=== PATIENT | male | born 1980 | race Two or more races ===

== ENCOUNTER → 2022-10-04 | Emergency (ER) | payer OTHER ==
[~2022-10-04] VITALS: Ht 170.2 cm; Wt 84.4 kg
[~2022-10-04] MED LIST: LOSARTAN POTASS50 MG; LOSARTAN-HCTZ1 EACH
== END | disposition home or self-care (01) ==
LOC: ER 09:54
DX: K52.9 Noninfective gastroenteritis and colitis, unspecified (principal); I10 Essential (primary) hypertension

== ENCOUNTER → 2024-12-26 | Emergency (ER) | payer OTHER ==
[~2024-12-26] VITALS: Ht 170.2 cm; Wt 88.0 kg
[~2024-12-26] MED LIST changes: +ACETAMINOPHEN 500 MG GEL..CAP PO ONE
== END | disposition left against medical advice (07) ==
LOC: ER 14:56
DX: Z53.21 Procedure and treatment not carried out due to patient leaving prior to being seen by health care provider (principal)